=== PATIENT | female | born 1975 | race Caucasian/White ===

== ENCOUNTER 2016-05-29 08:20 | Day surgery (SDC) | payer OTHER ==
[~2016-05-29] VITALS: Ht 154.9 cm; Wt 61.8 kg
[2016-05-29] VITALS (8 sets, daily range): BP systolic 98–120; BP diastolic 56–71; PULSE 54–72; RESP 16–29; Ht 154.9 cm; Wt 61.8 kg
[~2016-05-29 08:20] MED LIST: CEFAZOLIN 1 GM INJ ONE
[2016-05-29] MEDS ORDERED: CEFAZOLIN 2 GM/50 ML (PMX) 50 ML IVPB ONE (08:30)
[2016-05-29] MEDS ORDERED: SOD CHLORIDE 0.9% 1,000 ML IV SCH (08:30)
[2016-05-29] MEDS ORDERED: LIDOCAINE 100 MG SYRINGE ONE (09:40)
[2016-05-29] MEDS ORDERED: ROCURONIUM 50 MG INJ ONE (09:40)
[2016-05-29] MEDS ORDERED: PROPOFOL 20 ML ONE (09:40)
[2016-05-29] MEDS ORDERED: NEOSTIGMINE 3 MG/3 ML SYRINGE ONE (09:40)
[2016-05-29] MEDS ORDERED: GLYCOPYRROLATE 0.4 MG INJ ONE (09:40)
[2016-05-29] MEDS ORDERED: FENTAnyl 50 MCG/ML VIAL ONE (09:41)
[2016-05-29] MEDS ORDERED: DEXAMETHASONE 4 MG/ML 1 ML INJ ONE (09:41)
[2016-05-29] MEDS ORDERED: MIDAZOLAM 1 MG/ML 2 ML INJ ONE (09:41)
[2016-05-29] MEDS ORDERED: ONDANSETRON 4 MG INJ ONE (09:41)
[2016-05-29] MEDS ORDERED: POLYMYXIN/BACITRACIN 1L IRRIG IRR ONE (10:06)
[2016-05-29] MEDS ORDERED: BUPIVACAINE 0.25% (STERILE-PAK) 30 ML INJ INJ ONE (10:06)
[2016-05-29] MEDS ORDERED: hydrALAzine 20 MG INJ IV PRN (10:30)
[2016-05-29] MEDS ORDERED: FENTAnyl 50 MCG/ML VIAL IV PRN ×3 (10:30)
[2016-05-29] MEDS ORDERED: LABETALOL HCL 20MG INJ IV PRN (10:30)
[2016-05-29] MEDS ORDERED: EPHEDrine SULFATE 50 MG/5 ML SYG IV PRN (10:30)
[2016-05-29] MEDS ORDERED: DIPHENHYDRAMINE 50 MG INJ IV PRN (10:30)
[2016-05-29] MEDS ORDERED: HYDROmorphONE (0.2 MG/ML) 10ML SYG IV PRN ×2 (10:30)
[2016-05-29] MEDS ORDERED: TRIMETHOBENZAMIDE 100 MG/ML VIAL IM PRN (10:30)
[2016-05-29] MEDS ORDERED: HYDROCODONE/APAP (5/325) TAB PO ONE (10:30)
[2016-05-29] MEDS ORDERED: MIDAZOLAM 1 MG/ML 2 ML INJ IV PRN (10:30)
[2016-05-29] MEDS ORDERED: ONDANSETRON 4 MG INJ IV PRN (10:30)
[2016-05-29] MEDS ORDERED: MEPERIDINE 25 MG INJ IV PRN (10:30)
[2016-05-29] MEDS: HYDROmorphONE (0.2 MG/ML) 10ML SYG IV PRN ×2 (10:31→10:38)
[2016-05-29] MEDS ORDERED: BUPIVACAINE 0.25% (MPF) 30 ML INJ ONE (10:45)
[2016-05-29] MEDS ORDERED: POLYMYXIN/BACITRACIN 1L IRRIG ONE (10:46)
--- NOTE | 2016-05-29 16:41 | OPR ---
DATE OF OPERATION: 05/29/2016 INDICATION: This is a 40-year-old female with incarcerated incisional hernia. She requests surgical repair. Risks, alternatives, benefits, and personnel were discussed with the patient. Patient expressed understanding and consents to the operation. PREOPERATIVE DIAGNOSIS: Incarcerated incisional hernia. POSTOPERATIVE DIAGNOSIS: Incarcerated incisional hernia. OPERATION PERFORMED: Laparoscopic incarcerated incisional hernia repair with 10 x [address] mesh. SURGEON: Jaylen Red MD SPECIMEN: None. COMPLICATIONS: None. ANESTHESIA: General. PROCEDURE: The patient was taken to the OR and prepped and draped in usual sterile fashion. Surgical timeout was performed. IV antibiotics were given. Left upper quadrant 5 mm incision was made with a 15 blade. Using a 5 mm optical trocar, optical entry was performed. Pneumoperitoneum was established. Left flank 12 mm optical trocar and left lower quadrant 5 mm optical trocar was placed under direct visualization. Upon initial inspection, there was incarcerated contents into the midline incision. This was reduced with laparoscopic Harmonic. Interrupted #1 Prolene was placed to close the defect. Underlay mesh with approximately 4 to 5 cm of coverage in all directions was secured with a SecureStrap. There was good hemostasis. Ports were removed under direct visualization. Skin was closed using skin santino. Local anesthesia was injected. Dry dressings were applied. Dictated By: JAYLEN LEE/NAYANA Conf#: [id number] DID#: [id number] MTDD
== END 2016-05-29 13:20 | disposition home or self-care (01) ==
LOC: SDS 08:20
PROVIDERS: ATTEND Surgery
DX: K43.0 Incisional hernia with obstruction, without gangrene (principal)
CPT/HCPCS: 49655; 84703; C1781; J0690; J1100; J1170; J2001; J2175; J2250; J2405; J2710; J3010; Z7512; Z7610

== ENCOUNTER 2016-06-29 16:54 | Emergency (ER) | payer OTHER ==
[~2016-06-29] VITALS: Ht 152.4 cm; Wt 62.0 kg
[2016-06-29 17:25] VITALS: Ht 152.4 cm; Wt 62.0 kg
[2016-06-29 20:17] LABS: URINE BLOOD (Dip) POC 2+ (NEGATIVE)
[2016-06-29] MEDS ORDERED: SOD CHLORIDE 0.9% 1,000 ML IV STA (20:18)
[2016-06-29] MEDS ORDERED: morphine 2 MG INJ IV STA (20:18)
[2016-06-29] MEDS ORDERED: ONDANSETRON 4 MG INJ IV STA (20:18)
[2016-06-29 20:24] LABS: ADD SCAN DIFF NO
[2016-06-29 20:26] LABS: BASOPHILS % 0.6 % (0.0-2.0); EOSINOPHILS # 0.1 10^3/ul (0.0-0.5); EOSINOPHILS % 1.9 % (0.0-7.0); HEMOGLOBIN 9.8 g/dl (12.0-16.0); LYMPHOCYTES # 1.7 10^3/ul (0.8-2.9); LYMPHOCYTES % 24.9 % (15.0-51.0); MEAN CORPUSCULAR HEMOGLOBIN 23.9 pg (29.0-33.0); MEAN CORPUSCULAR HGB CONC 31.6 g/dl (32.0-37.0); MEAN CORPUSCULAR VOLUME 75.6 fl (82.0-101.0); MONOCYTE # 0.6 10^3/ul (0.3-0.9); MONOCYTES % 9.4 % (0.0-11.0); NEUTROPHIL # 4.3 10^3/ul (1.6-7.5); NEUTROPHILS % 62.8 % (39.0-77.0); PLATELET COUNT 414 10^3/UL (140-415); RED CELL DISTRIBUTION WIDTH 17.8 % (11.5-14.5); WHITE BLOOD COUNT 6.8 10^3/ul (4.8-10.8)
--- NOTE | 2016-06-29 20:38 | ERD ---
ER Documentation Chief Complaint Date/Time DATE: 06/29/16 TIME: 20:35 Chief Complaint right lower abdominal pain x 1 month, had hernia repair a month ago HPI This is a 40-year-old female presenting to the emergency department for right lower quadrant abdominal pain for the past month. Patient states she had a left -sided patient states hernia repair about 1 month ago on May 29, 2016 Patient denies fever. No nausea, vomiting or diarrhea. Denies constipation. No shortness of breath, difficulty breathing or chest pain. Patient states she has urinary frequency and urinary urgency. No back or flank pain. ROS All systems reviewed and are negative except as per history of present illness. Medications Home Meds Active Scripts Ibuprofen* (Motrin*) 600 Mg Tab, 600 MG PO Q6, #15 TAB Prov:CHRIS NEVES NP 06/29/16 Hydrocodone/Acetaminophen ([place] 5-325 Tablet) 1 Each Tablet, 1 TAB PO Q6H Y for PAIN, #15 TAB Prov:CHRIS NEVES NP 06/29/16 Allergies Allergies: Coded Allergies: No Known Drug Allergy (Unverified Allergy, Intermediate, NONE, 06/29/16) PMhx/Soc History of Surgery: Yes (BTL, HERNIA) Anesthesia Reaction: No Hx Neurological Disorder: No Hx Respiratory Disorders: No Hx Cardiac Disorders: No Hx Psychiatric Problems: No Hx Miscellaneous Medical Probl: No Hx Alcohol Use: No Hx Substance Use: No Hx Tobacco Use: No Smoking Status: Never smoker Physical Exam Vitals Vital Signs Date Time Temp Pulse Resp B/P Pulse Ox O2 Delivery O2 Flow Rate FiO2 06/29/16 23:44 98.7 88 16 128/80 100 Room Air 06/29/16 23:16 71 17 115/69 99 Room Air 06/29/16 17:25 98.3 92 18 141/65 98 Physical Exam Const: Alert, nontoxic-appearing. Head: Atraumatic Eyes: Normal Conjunctiva ENT: Normal External Ears, Nose and Mouth. Neck: Full range of motion..~ No meningismus. Resp: Clear to auscultation bilaterally. No wheezing, rhonchi or crackles. Cardio: Regular rate and rhythm, no murmurs Abd: Soft, non distended. Normal bowel sounds, tenderness to right lower quadrant. No rebound tenderness. Negative Casanova sign. Skin: No petechiae or rashes Back: No midline or flank tenderness. No CVA tenderness. Ext: No cyanosis, or edema Neur: Awake and alert Psych: Normal Mood and Affect Result Diagram: 06/29/16201406/29/162014 Results 24 hrs Laboratory Tests Test 06/29/16 20:15 06/29/16 20:17 White Blood Count 6.810^3/ul Red Blood Count 4.1010^6/ul Hemoglobin 9.8g/dl Hematocrit 31.0% Mean Corpuscular Volume 75.6fl Mean Corpuscular Hemoglobin 23.9pg Mean Corpuscular Hemoglobin Concent 31.6g/dl Red Cell Distribution Width 17.8% Platelet Count 93088^3/UL Mean Platelet Volume 9.0fl Neutrophils % 62.8% Lymphocytes % 24.9% Monocytes % 9.4% Eosinophils % 1.9% Basophils % 0.6% Nucleated Red Blood Cells % 0.0/100WBC Neutrophils # 4.310^3/ul Lymphocytes # 1.710^3/ul Monocytes # 0.610^3/ul Eosinophils # 0.110^3/ul Basophils # 0.010^3/ul Nucleated Red Blood Cells # 0.010^3/ul Sodium Level 139mmol/L Potassium Level 3.7mmol/L Chloride Level 103mmol/L Carbon Dioxide Level 28mmol/L Anion Gap 12 Blood Urea Nitrogen 11mg/dl Creatinine 0.56mg/dl Glucose Level 100mg/dl Calcium Level 9.8mg/dl Total Bilirubin 0.2mg/dl Direct Bilirubin 0.00mg/dl Indirect Bilirubin 0.2mg/dl Aspartate Amino Transf (AST/SGOT) 40IU/L Alanine Aminotransferase (ALT/SGPT) 46IU/L Alkaline Phosphatase 133IU/L Total Protein 8.8g/dl Albumin 4.7g/dl Globulin 4.10g/dl Albumin/Globulin Ratio 1.14 Lipase 55U/L Bedside Urine pH (LAB) 5.5 Bedside Urine Protein (LAB) Negative Bedside Urine Glucose (UA) Negative Bedside Urine Ketones (LAB) Negative Bedside Urine Blood 2+ Bedside Urine Nitrite (LAB) Negative Bedside Urine Leukocyte Esterase (L Negative Current Medications Medications (Trade) Dose Ordered Sig/Ellie Route PRN Reason Start Time Stop Time Status Last Admin Dose Admin Sodium Chloride (NS) 1,000 ml @ 1,000 mls/hr Q1H STAT IV 06/29/16 20:18 06/29/16 21:17 DC 06/29/16 20:25 Morphine Sulfate (morphine) 2 mg ONCE STAT IV 06/29/16 20:18 06/29/16 20:22 DC 06/29/16 20:25 Ondansetron HCl (Zofran Inj) 4 mg ONCE STAT IV 06/29/16 20:18 06/29/16 20:22 DC 06/29/16 20:25 IV Flush 10 ml 10 ml STK-MED ONCE .ROUTE 06/29/16 21:10 06/29/16 21:11 DC 06/29/16 21:44 Sodium Chloride (NS) 100 ml @ ud STK-MED ONCE .ROUTE 06/29/16 21:10 06/29/16 21:11 DC 06/29/16 21:44 Iohexol (Omnipaque 300mg/ ml) 150 ml STK-MED ONCE .ROUTE 06/29/16 21:10 06/29/16 21:11 DC 06/29/16 21:44 Hydromorphone HCl (Dilaudid) 0.5 mg ONCE STAT IV 06/29/16 23:12 06/29/16 23:13 DC 06/29/16 23:15 Procedures/MDM ED COURSE: The patient was stable throughout ED course. I kept the patient and/or family informed of laboratory and diagnostic imaging results throughout the ED course. Laboratory CBC hgb 9.8, hct 31.0 CMP alk phos 133 Lipase 55 Urine dip 2+ blood Urine negative Imaging Pelvic ultrasound Patient: YUE KU : 1975 Age: 40 Sex: F MR #: [id number] DOS: 06/29/162017 Ordering MD: CHIRS NEVES NP Location: [facility] Room/Bed: PROCEDURE: US Non-OB Pelvis. CLINICAL INDICATION: Right lower quadrant pain, status post recent hernia repair. TECHNIQUE: Multiple sonographic images of the pelvis were obtained utilizing a transabdominal technique. The images were reviewed on a PACS workstation. COMPARISON: None. FINDINGS: The uterus is visualized and measures 10.3 x 5.2 x 7.1 cm. The endometrial echo complex is thickened and heterogeneous, measuring 2.2 cm. The right ovary measures 2.6 x 1.7 x 1.9 cm. The left ovary measures 3.1 x 2.1 x 2.4 cm. Blood flow is demonstrated to both ovaries. No adnexal masses are noted. There is no evidence of free fluid. IMPRESSION: 1. Thickened and heterogeneous endometrium measuring 2.2 cm, nonspecific. 2. Normal appearance of the ovaries. CT abdomen and pelvis with contrast Patient: YUE KU : 1975 Age: 40 Sex: F MR #: [id number] [facility] #: [id number] DOS: 06/29/162017 Ordering MD: CHRIS NEVES NP Location: [facility] Room/Bed: PROCEDURE: CT Abdomen and Pelvis with contrast. CLINICAL INDICATION: Right lower quadrant pain, recent hernia repair. TECHNIQUE: A CT scan of the abdomen and pelvis was performed with intravenous contrast. The patient was scanned following the uncomplicated intravenous administration of 85 cc of Omnipaque-300. Coronal and sagittal reformatted images were obtained from the axial source images. Images were reviewed on a high-resolution PACS workstation. CTDIvol: 8.69 mGy. DLP: 502.39 mGy-cm. One or more of the following dose reduction techniques were used: - Automated exposure control. - Adjustment of the mA and/or kV according to patient size. - Use of iterative reconstruction technique. COMPARISON: None. FINDINGS: There is mild atelectasis in both lower lobes. The liver is unremarkable. The gallbladder is normal in appearance. The common bile duct is not dilated. The spleen is not enlarged. No pancreatic lesion is identified and there is no pancreatic ductal dilatation. The adrenal glands are unremarkable. The kidneys are normal in size. There is no perinephric fat stranding. No hydronephrosis is seen. The small and large bowel are normal in caliber. There is no bowel wall thickening. The appendix is normal. The urinary bladder is unremarkable. There is a 3.0 x 1.8 cm right-sided Bartholin cyst. The uterus is unremarkable. Bilateral ovarian cysts measure up to 2.1 cm on the right. No lymphadenopathy is identified. There is no ascites. No pneumoperitoneum is seen. There are no arterial calcifications. There is irregular linear density, minimal adjacent fat infiltration, and minimal fluid along the anterior abdominopelvic peritoneum, probably representing a surgical mesh and mild adjacent postsurgical changes. No suspicious osseous lesion is idenitified. IMPRESSION: 1. Irregular linear density, minimal adjacent fat infiltration, and minimal fluid along the anterior abdominopelvic peritoneum, probably representing a surgical mesh and mild adjacent postsurgical changes. 2. Normal appendix. 3. Right-sided Bartholin cyst measuring 3.0 cm. 4. Bilateral ovarian cysts measuring up to 2.1 cm on the right. MDM: 40-year-old female presents emergency department for right lower quadrant abdominal pain 1 month. Patient had recent left-sided hernia repair 1 month ago on 05/29/2016. Patient states she has had this pain since having surgery. Patient did follow-up with her surgeon 2 weeks after surgery and was told her abdominal pain was related to surgery. Patient's next appointment is in 2 weeks. Patient states pain is severe at times and worse with movement. IV access obtained per executive staff assistant. Patient started on 1 L fluid bolus of normal saline. Patient given morphine and Zofran through IV. Patient states pain has improved. Pelvic US reviewed by radiologist as thickened and heterogeneous endometrium measuring 2.2 cm, nonspecific. Normal appearance of the ovaries. CT abdomen and pelvis reviewed by radiolgost as irregular linear density, minimal adjacent fat infiltration, and minimal fluid along the anterior abdominopelvic peritoneum, probably representing a surgical mesh and mild adjacent postsurgical changes. Normal appendix. Right-sided Bartholin cyst measuring 3.0 cm. Bilateral ovarian cysts measuring up to 2.1 cm on the right. Upon reassessment, patient states pain has now worsened. Patient given 0.5mg Dilaudid IV and within 15min, patient states she has no pain. Consulted Dr. Lawrence regarding this patient and we agree that patient is stable for discharge home and prompt follow up with OBGYN. Low suspicion for ovarian torsion, ovarian abscess, ectopic , diverticulitis, appendicitis and bowel obstruction. Patient's diagnosis is abdominal pain secondary to ovarian cysts. Patient is appropriate for outpatient management and will be discharged with prescription for Freeman and ibuprofen. Instructed patient to follow up with PCP or OBGYN in the next 2-3 days for reassessment. Return to ED for any new or worsening symptoms. Departure Diagnosis: Primary Impression: Abdominal pain Abdominal location: right lower quadrant Qualified Code: R10.31 - Right lower quadrant abdominal pain Additional Impression: Ovarian cyst Laterality: bilateral Qualified Code: N83.201 - Cysts of both ovaries Condition: Stable CHRIS NEVES NP Jun 29, 2016 20:38
[2016-06-29 21:02] LABS: ALBUMIN 4.7 g/dl (3.3-4.9); ALBUMIN/GLOBULIN RATIO 1.14; BILIRUBIN,INDIRECT 0.2 mg/dl (0-1.1); BILIRUBIN,TOTAL 0.2 mg/dl (0.2-1.3); CALCIUM 9.8 mg/dl (8.4-10.2); CREATININE 0.56 mg/dl (0.44-1.00); POTASSIUM 3.7 mmol/L (3.5-5.1); TOTAL PROTEIN 8.8 g/dl (6.1-8.1)
[2016-06-29] MEDS ORDERED: IOHEXOL 300MG/ML 150 ML BTL ONE (21:10)
[2016-06-29] MEDS ORDERED: SOD CHLORIDE 0.9% 100 ML ONE (21:10)
--- NOTE | 2016-06-29 22:12 | RADRPT ---
PROCEDURE: CT Abdomen and Pelvis with contrast. CLINICAL INDICATION: Right lower quadrant pain, recent hernia repair. TECHNIQUE: A CT scan of the abdomen and pelvis was performed with intravenous contrast. The patie nt was scanned following the uncomplicated intravenous administration of 85 cc of Omnipaque-300. Co serge and sagittal reformatted images were obtained from the axial source images. Images were review ed on a high-resolution PACS workstation. CTDIvol: 8.69 mGy. DLP: 502.39 mGy-cm. One or more of the following dose reduction techniques were used: - Automated exposure control. - Adjustment of the mA and/or kV according to patient size. - Use of iterative reconstruction technique. COMPARISON: None. FINDINGS: There is mild atelectasis in both lower lobes. The liver is unremarkable. The gallbladder is normal in appearance. The common bile duct is not dila anuja. The spleen is not enlarged. No pancreatic lesion is identified and there is no pancreatic ducta l dilatation. The adrenal glands are unremarkable. The kidneys are normal in size. There is no perinephric fat stranding. No hydronephrosis is seen. The small and large bowel are normal in caliber. There is no bowel wall thickening. The appendix is normal. The urinary bladder is unremarkable. There is a 3.0 x 1.8 cm right-sided Bartholin cyst. The uterus is unremarkable. Bilateral ovarian cysts measure up to 2.1 cm on the right. No lymphadenopathy is identified. There is no ascites. No pneumoperitoneum is seen. There are no art erial calcifications. There is irregular linear density, minimal adjacent fat infiltration, and minimal fluid along the an terior abdominopelvic peritoneum, probably representing a surgical mesh and mild adjacent postsurgic al changes. No suspicious osseous lesion is idenitified. IMPRESSION: 1. Irregular linear density, minimal adjacent fat infiltration, and minimal fluid along the anterio r abdominopelvic peritoneum, probably representing a surgical mesh and mild adjacent postsurgical ch anges. 2. Normal appendix. 3. Right-sided Bartholin cyst measuring 3.0 cm. 4. Bilateral ovarian cysts measuring up to 2.1 cm on the right. RPTAT: HTAR .Alexander Tesfaye, MD, Date Time Electronically viewed and signed by .Alexander Tesfaye MD, on 06/29/2016 22:11 .R/
--- NOTE | 2016-06-29 22:13 | RADRPT ---
PROCEDURE: US Non-OB Pelvis. CLINICAL INDICATION: Right lower quadrant pain, status post recent hernia repair. TECHNIQUE: Multiple sonographic images of the pelvis were obtained utilizing a transabdominal tech nique. The images were reviewed on a PACS workstation. COMPARISON: None. FINDINGS: The uterus is visualized and measures 10.3 x 5.2 x 7.1 cm. The endometrial echo complex is thickened and heterogeneous, measuring 2.2 cm. The right ovary measures 2.6 x 1.7 x 1.9 cm. The left ovary measures 3.1 x 2.1 x 2.4 cm. Blood flow is demonstrated to both ovaries. No adnexal masses are noted. There is no evidence of free fluid. IMPRESSION: 1. Thickened and heterogeneous endometrium measuring 2.2 cm, nonspecific. 2. Normal appearance of the ovaries. RPTAT: HTAR .Alexander Tesfaye MD, Date Time Electronically viewed and signed by .Alexander Tesfaye MD, on 06/29/2016 22:13 .R/
[2016-06-29] MEDS ORDERED: HYDROmorphONE 1 MG/ML SYG IV STA (23:12)
[2016-06-29] MEDS ORDERED: IBUP-1542 PO (23:28)
[2016-06-29] MEDS ORDERED: HYDR-906 PO (23:28)
[2016-06-29 23:44] VITALS: BP 128/80; PULSE 88; RESP 16; TEMP 98.7
== END 2016-06-29 23:48 | disposition home or self-care (01) ==
LOC: FTE 16:54
DX: R10.31 Right lower quadrant pain (principal); N83.201 Unspecified ovarian cyst, right side
CPT/HCPCS: 74177; 76856; 80053; 81003; 83690; 85025; J1170; J2270; J2405; J7030; Q9967; Z7610; 36415; 96374; 96375

== ENCOUNTER 2018-07-29 07:56 | Day surgery (SDC) | payer OTHER ==
[~2018-07-29] VITALS: Ht 152.4 cm; Wt 63.7 kg
[2018-07-29] VITALS (8 sets, daily range): BP systolic 103–129; BP diastolic 51–68; PULSE 60–78; RESP 14–20; Ht 152.4 cm; Wt 63.7 kg
[~2018-07-29 07:56] MED LIST changes: -CEFAZOLIN 1 GM INJ ONE; +HYDR-4011 PO; +IBUP-1542 PO
--- NOTE | 2018-07-29 10:28 | HPN ---
Date/Time of Note Date/Time of Note DATE: 07/29/18 TIME: 10:28 Interval H&P Admission Note Pt. seen H&P reviewed: No system changes SHARIFA AMADOR July 29, 2018 10:28
--- NOTE | 2018-07-29 10:36 | PREAC ---
Date/Time of Note Date/Time of Note DATE: 07/29/18 TIME: 10:34 Anesthesia Eval and Record Evaluation Time Pre-Procedure Interview DATE: 07/29/18 TIME: 10:34 Age 42 Sex female NPO: 8 hrs Preoperative diagnosis GERD. LOWER GI BLEEDINGH Planned procedure EGD, COLONOSCOPY Past Medical History Past Medical History: None Surgery & Anesthesia Issues No known issue Meds Anticoagulation: No Beta Erna within 24 hr: No Reason Beta Erna not given: Pt. not on B-Erna Reported Medications [None] No Conflict Check 07/29/18 Discontinued Scripts Ibuprofen* (Motrin*) 600 Mg Tab, 600 MG PO Q6, #15 TAB Prov:CHRIS NEVES NP 06/29/16 Hydrocodone/Acetaminophen ([place] 5-325 Tablet) 1 Each Tablet, 1 TAB PO Q6H PRN for PAIN, #15 TAB Prov:CHRIS NEVES NP 06/29/16 Meds reviewed: Yes Allergies Coded Allergies: No Known Drug Allergy (Unverified Allergy, Intermediate, NONE, 06/29/16) Allergies Reviewed: Yes Labs/Studies Labs Reviewed: Reviewed by anesthesiologist test: Negative Studies: ECG (N/A), CXR (N/A) Pre-procedure Exam Airway: Adequate mouth opening Mallampati: Mallampati I Teeth: Normal Lung: Normal Heart: Normal Anticipated Difficutly with IV: Anticipate Difficult IV Access ASA Physical Status ASA physical status: 1 Emergency: None Planned Anesthetic General/MAC: MAC Planned Pain Management Parenteral pain med Pre-operative Attestations Prior to commencing anesthesia and surgery, the patient was re-evaluated, there was verification of: *The patient's identity *The results of appropriate recent lab work and preoperative vital signs *The above evaluation not changing prior to induction *Anesthetic plan, risk benefits, alternative and complications discussed with patient/family; questions answered; patient/family understands, accepts and wishes to proceed. AURELIO JACOBO MD July 29, 2018 10:36
[2018-07-29] MEDS ORDERED: FENTAnyl 50 MCG/ML VIAL ONE (10:37)
[2018-07-29] MEDS ORDERED: PROPOFOL 20 ML ONE (10:37)
[2018-07-29] MEDS ORDERED: ONDANSETRON 4 MG INJ IV PRN (11:00)
--- NOTE | 2018-07-29 14:38 | PAC ---
Date/Time of Note Date/Time of Note DATE: 07/29/18 TIME: 14:38 Post-Anesthesia Notes Post-Anesthesia Note Last documented vital signs Vital Signs Date Temp Pulse Resp B/P (MAP) Pulse Ox O2 O2 Flow FiO2 Time Delivery Rate 07/29/18 98.2 62 15 109/59 98 Room Air 11:41 (76) 07/29/18 98.2 11:06 Activity: WNL Respiratory function: WNL Cardiovascular function: WNL Mental status: Baseline Pain reasonably controlled: Yes Hydration appropriate: Yes Nausea/Vomiting absent: No AURELIO JACOBO MD July 29, 2018 14:38
== END 2018-07-29 12:51 | disposition home or self-care (01) ==
LOC: GIL 07:56
PROVIDERS: ATTEND Internal Medicine Gastroenterology
DX: K64.0 First degree hemorrhoids (principal); K25.9 Gastric ulcer, unspecified as acute or chronic, without hemorrhage or perforation; K29.50 Unspecified chronic gastritis without bleeding
CPT/HCPCS: 43235; 45378; 84703; J3010; Z7610

== ENCOUNTER 2018-10-24 11:45 | Day surgery (SDC) | payer OTHER ==
[~2018-10-24] VITALS: Ht 154.9 cm; Wt 64.0 kg
[~2018-10-24 11:45] MED LIST changes: -HYDR-4011 PO; -IBUP-1542 PO; +pantoprazole; +sucralfate
[2018-10-24 13:02] VITALS: Ht 154.9 cm; Wt 64.0 kg
[2018-10-24 13:36] VITALS: BP 122/70; PULSE 59; RESP 19
--- NOTE | 2018-10-24 13:49 | PREAC ---
Date/Time of Note Date/Time of Note DATE: 10/24/18 TIME: 13:47 Anesthesia Eval and Record Evaluation Time Pre-Procedure Interview DATE: 10/24/18 TIME: 13:47 Age 42 Sex female NPO: 8 hrs Preoperative diagnosis abdo pain Planned procedure egd Past Medical History Past Medical History: Includes GI: GERD, Obesity Surgery & Anesthesia Issues No known issue Meds Anticoagulation: No Beta Erna within 24 hr: No Reason Beta Erna not given: Pt. not on B-Erna Reported Medications [sucralfate] No Conflict Check 10/24/18 [pantoprazole] No Conflict Check 10/24/18 Discontinued Reported Medications [None] No Conflict Check 07/29/18 Meds reviewed: Yes Allergies Coded Allergies: No Known Drug Allergy (Unverified Allergy, Intermediate, NONE, 10/24/18) Allergies Reviewed: Yes Labs/Studies Labs Reviewed: Reviewed by anesthesiologist test: Negative Pre-procedure Exam Last vitals Vital Signs Date Temp Pulse Resp B/P (MAP) Pulse Ox O2 O2 Flow FiO2 Time Delivery Rate 10/24/18 97.1 59 19 122/70 100 Room Air 13:36 (87) Airway: Adequate mouth opening Mallampati: Mallampati I Teeth: Normal Lung: Normal Heart: Normal ASA Physical Status ASA physical status: 1 Emergency: None Planned Anesthetic General/MAC: Mask, MAC Pre-operative Attestations Prior to commencing anesthesia and surgery, the patient was re-evaluated, there was verification of: *The patient's identity *The results of appropriate recent lab work and preoperative vital signs *The above evaluation not changing prior to induction *Anesthetic plan, risk benefits, alternative and complications discussed with patient/family; questions answered; patient/family understands, accepts and wishes to proceed. ARNIE ESPINOSA MD Oct 24, 2018 13:49
[2018-10-24] MEDS ORDERED: IPRATROPIUM (NEB) 0.5 MG/2.5 ML AMP HHN PRN (14:00)
[2018-10-24] MEDS ORDERED: FENTAnyl 50 MCG/ML VIAL IV PRN ×3 (14:00)
[2018-10-24] MEDS ORDERED: EPHEDrine 25 MG/5 ML SYG IV PRN (14:00)
[2018-10-24] MEDS ORDERED: TRIMETHOBENZAMIDE 100 MG/ML VIAL IM PRN (14:00)
[2018-10-24] MEDS ORDERED: OXYCODONE/ACETAMINOPHEN (5/325) TAB PO PRN ×2 (14:00)
[2018-10-24] MEDS ORDERED: LABETALOL HCL 20MG INJ IV PRN (14:00)
[2018-10-24] MEDS ORDERED: MIDAZOLAM 1 MG/ML 2 ML INJ IV PRN (14:00)
[2018-10-24] MEDS ORDERED: hydrALAzine 20 MG INJ IV PRN (14:00)
[2018-10-24] MEDS ORDERED: ONDANSETRON 4 MG INJ IV PRN (14:00)
[2018-10-24] MEDS ORDERED: HYDROmorphONE 1 MG/5 ML IV SYRINGE IV PRN ×3 (14:00)
[2018-10-24] MEDS ORDERED: DIPHENHYDRAMINE 50 MG INJ IV PRN (14:00)
[2018-10-24] MEDS ORDERED: ALBUTEROL 0.083% (NEB) 2.5 MG/3 ML AMP HHN PRN (14:00)
[2018-10-24] MEDS ORDERED: MEPERIDINE 25 MG INJ IV PRN (14:00)
[2018-10-24] MEDS ORDERED: PROPOFOL 20 ML ONE (15:06)
[2018-10-24] MEDS ORDERED: ETOMIDATE 20 MG INJ ONE (15:08)
--- NOTE | 2018-10-30 08:25 | PAC ---
Date/Time of Note Date/Time of Note DATE: 10/30/18 TIME: 08:24 Post-Anesthesia Notes Post-Anesthesia Note Activity: WNL Respiratory function: WNL Cardiovascular function: WNL Mental status: Baseline Pain reasonably controlled: Yes Hydration appropriate: Yes Nausea/Vomiting absent: Yes ARNIE ESPINOSA MD Oct 30, 2018 08:25
== END 2018-10-24 17:46 | disposition home or self-care (01) ==
LOC: GIL 11:45
PROVIDERS: ATTEND Internal Medicine Gastroenterology
DX: K29.70 Gastritis, unspecified, without bleeding (principal)
CPT/HCPCS: 43239; 88305; 88312; Z7610